=== PATIENT | female | born 1935 | race Caucasian/White ===

== ENCOUNTER 2021-06-26 17:10 | Emergency (ER) | payer OTHER ==
[~2021-06-26] VITALS: Ht 152.4 cm; Wt 61.2 kg
[2021-06-26] MEDS ORDERED: NIFEDIPINE ER60 M1 PO (17:34)
[2021-06-26] MEDS ORDERED: DOXYCYCLINE HY100 M2 PO (17:34)
[2021-06-26] MEDS ORDERED: VALSARTAN-HCTZ1 EAC3 PO (17:35)
[2021-06-26] MEDS ORDERED: METOPROLOL SUCC50 MG PO (17:35)
[2021-06-26] MEDS ORDERED: PRAVASTATIN SOD20 MG PO (17:35)
== END 2021-06-26 23:19 | disposition home or self-care (01) ==
LOC: ER 17:10
DX: S00.12XA Contusion of left eyelid and periocular area, initial encounter (principal); W18.30XA Fall on same level, unspecified, initial encounter; Y93.9 Activity, unspecified; Y92.019 Unspecified place in single-family (private) house as the place of occurrence of the external cause; Z88.8 Allergy status to other drugs, medicaments and biological substances; R19.7 Diarrhea, unspecified

== ENCOUNTER 2022-03-21 09:56 | Outpatient (CLI) | payer OTHER ==
[~2022-03-21 09:56] MED LIST: DOXYCYCLINE HY100 M2 PO; METOPROLOL SUCC50 MG PO; NIFEDIPINE ER60 M1 PO; PRAVASTATIN SOD20 MG PO; VALSARTAN-HCTZ1 EAC3 PO
== END 2022-03-21 09:57 | disposition home or self-care (01) ==
LOC: NUCLEAR 09:56
PROVIDERS: ATTEND Internal Medicine
DX: I50.30 Unspecified diastolic (congestive) heart failure (principal); I10 Essential (primary) hypertension
CPT/HCPCS: 78803; A9538

== ENCOUNTER 2022-04-09 07:39 | Outpatient (CLI) | payer OTHER | END 2022-04-09 07:40 | disposition home or self-care (01) | LOC: NUCLEAR 07:39 | PROVIDERS: ATTEND Internal Medicine | DX: I10 Essential (primary) hypertension (principal) | CPT/HCPCS: 78452; 93017; A9500; J1250 ==

== ENCOUNTER 2022-07-16 22:07 | Inpatient (IN) | payer OTHER ==
[~2022-07-16] VITALS: Ht 154.9 cm; Wt 63.5 kg
--- NOTE | 2022-07-16 22:21 | NUR ---
SE RECIBE PTE ALERTA Y ORIETADA X3 PTE REFIERE PRESION BP: 194/79, SE COLOCA EN LA UNIDAD DE PE[place], JUSTEN DE DR. CONTRERAS. SE MANEJA Y SE ORIENTA A FAMILIARES REFIREN ENTENDER. SE REALIZA EKG Y SE PRESENTA A DR. NEGRETE. SE KIKI VITALES Y SE UBICA.
[2022-07-17] MEDS ORDERED: VALSARTAN320 MG (11:11)
[2022-07-17] MEDS ORDERED: HYDRALAZINE HC100 MG (11:11)
[2022-07-17] MEDS ORDERED: ATORVASTATIN CA40 MG (11:11)
[2022-07-17] MEDS ORDERED: DOXAZOSIN MESYLA2 MG (11:11)
[2022-07-17] MEDS ORDERED: NIFEDIPINE ER30 M1 (11:11)
[2022-07-17] MEDS ORDERED: CLOPIDOGREL BIS75 MG (11:12)
[2022-07-17] MEDS ORDERED: OMEPRAZOLE40 MG (11:12)
[2022-07-17] MEDS ORDERED: SPIRONOLACTONE25 MG (11:12)
[2022-07-17] MEDS ORDERED: FUROSEMIDE20 MG (11:12)
[2022-07-17] MEDS ORDERED: ST. JOSEPH ASPI81 M2 (11:12)
== END 2022-08-01 12:07 | disposition designated cancer center or children's hospital (05) | DRG 292 ==
LOC: ER 22:07 → ICU-2 23:38 → ICU 07-17 16:28
PROVIDERS: ADMIT Internal Medicine; ATTEND Internal Medicine
PROC: BW28ZZZ Computerized Tomography (CT Scan) of Head (ICD-10-PCS; principal; 2022-07-16)
PROC: BW24ZZZ Computerized Tomography (CT Scan) of Chest and Abdomen (ICD-10-PCS; 2022-07-16)
PROC: B345ZZZ Ultrasonography of Bilateral Common Carotid Arteries (ICD-10-PCS; 2022-07-16)
PROC: B24BZZZ Ultrasonography of Heart with Aorta (ICD-10-PCS; 2022-07-17)
PROC: B030ZZZ Magnetic Resonance Imaging (MRI) of Brain (ICD-10-PCS; 2022-07-18)
PROC: B54DZZZ Ultrasonography of Bilateral Lower Extremity Veins (ICD-10-PCS; 2022-07-23)
PROC: B44HZZZ Ultrasonography of Bilateral Lower Extremity Arteries (ICD-10-PCS; 2022-07-23)
PROC: BR39ZZZ Magnetic Resonance Imaging (MRI) of Lumbar Spine (ICD-10-PCS; 2022-07-24)
DX: I13.0 Hypertensive heart and chronic kidney disease with heart failure and stage 1 through stage 4 chronic kidney disease, or unspecified chronic kidney disease (principal); I16.9 Hypertensive crisis, unspecified; I50.30 Unspecified diastolic (congestive) heart failure; I67.4 Hypertensive encephalopathy; N39.0 Urinary tract infection, site not specified; N17.9 Acute kidney failure, unspecified; I48.0 Paroxysmal atrial fibrillation; R41.82 Altered mental status, unspecified; I25.10 Atherosclerotic heart disease of native coronary artery without angina pectoris; Z98.61 Coronary angioplasty status; N18.9 Chronic kidney disease, unspecified; E87.5 Hyperkalemia; M54.10 Radiculopathy, site unspecified; B96.20 Unspecified Escherichia coli [E. coli] as the cause of diseases classified elsewhere; B96.1 Klebsiella pneumoniae [K. pneumoniae] as the cause of diseases classified elsewhere; M47.817 Spondylosis without myelopathy or radiculopathy, lumbosacral region; M48.00 Spinal stenosis, site unspecified; Z20.822 Contact with and (suspected) exposure to COVID-19
CPT/HCPCS: 70553; 72148